=== PATIENT | female | born 1990 | race Hispanic/Latino ===

== ENCOUNTER 2017-03-25 17:40 | Inpatient (IN) | payer OTHER ==
[~2017-03-25] VITALS: Ht 167.6 cm; Wt 138.3 kg
[2017-03-25 17:37] VITALS: BP 174/72
[~2017-03-25 17:40] MED LIST: IBUPROFEN600 MG PO; KEFLEX500 MG PO; PNV PO; TYLENOL325 MG PO; [UNRECOGNIZED DRUG - OTHER] PO
[2017-03-25 18:23] LABS: URINE BILIRUBIN - DIPSTICK NEGATIVE (NEGATIVE); URINE BLOOD DIPSTICK NEGATIVE (NEGATIVE); URINE COLOR YELLOW; URINE GLUCOSE - DIPSTICK NEGATIVE (NEGATIVE); URINE KETONE NEGATIVE (NEGATIVE); URINE LEUK ESTERASE NEGATIVE (NEGATIVE); URINE NITRITE - DIPSTICK NEGATIVE (Negative); URINE PH 6.5 (4.5-8.0); URINE PROTEIN - DIPSTICK NEGATIVE (NEG-TRACE); URINE SPECIFIC GRAVITY 1.025; URINE UROBILINOGEN - DIPSTICK 0.2 E.U./dL (0.2)
[2017-03-25 18:27] LABS: COCAINE NEGATIVE (NEGATIVE); TETRAHYDROCANNABIONOL NEGATIVE (NEGATIVE); URINE CLARITY CLEAR
[2017-03-25 18:28] LABS: BARBITURATES NEGATIVE (NEGATIVE); METHADONE NEGATIVE (NEGATIVE); OXCYCODONE NEGATIVE (NEGATIVE); TRICYLIC ANTIDEPRESSANTS NEGATIVE (NEGATIVE)
[2017-03-25 18:45] VITALS: BP 156/73
[2017-03-25 19:00] VITALS: BP 162/77
[2017-03-25 21:00] VITALS: BP 160/67
[2017-03-25 21:32] LABS: HEMATOCRIT 31.9 % (37.0-47.0); HEMOGLOBIN 10.1 g/dl (12.0-16.0); IMMATURE GRANULOCYTES 0.6 % (0.0-1.0); MEAN CELL VOLUME 75.8 fL CALC (80.0-100.0); MEAN CORPUSCULAR HGB CONC 31.7 g/L CALC (32.0-36.0); NEUT# 7.81 thou/uL (2.00-7.15); RED BLOOD COUNT 4.21 mill/uL (4.20-5.60); RED CELL DISTRI WIDTH 17.1 % (11.5-15.5)
[2017-03-25 21:46] LABS: ALBUMIN 3.5 g/dL (3.2-5.0); ALKALINE PHOSPHATASE 143 u/l (38-126); ANION GAP 12 (6-22 (CALC)); BILIRUBIN, TOTAL 0.2 mg/dL (0.0-1.4); BUN 9 mg/dL (7-17); BUN/CREATININE RATIO 17 (12-20 (CALC)); CALCIUM 9.5 mg/dL (8.4-10.2); CARBON DIOXIDE 24 mmol/l (22-30); CHLORIDE 104 mmol/l (95-108); CREATININE 0.5 mg/dL (0.5-1.0); GFR > 60 ML/MIN (>=60 (CALC)); GFR FOR AFR.AMER. > 60 ML/MIN (>=60 (CALC)); GLUCOSE 73 mg/dL (65-105); SGOT/AST 28 u/l (14-36); SGPT/ALT 32 u/l (9-52); SODIUM 136 mmol/l (137-146); TOTAL PROTEIN 6.6 g/dL (6.3-8.2)
[2017-03-25 22:30] VITALS: BP 169/71
[2017-03-25 23:00] VITALS: BP 141/96
[2017-03-26] VITALS (22 sets, daily range): BP systolic 111–187; BP diastolic 54–86
[2017-03-27 06:07] LABS: HEMATOCRIT 25.5 % (37.0-47.0); IMMATURE GRANULOCYTES 0.6 % (0.0-1.0); MEAN CELL VOLUME 75.4 fL CALC (80.0-100.0); MEAN CORPUSCULAR HGB 23.7 pG CALC (26.0-32.0); MEAN CORPUSCULAR HGB CONC 31.4 g/L CALC (32.0-36.0); NEUT# 6.67 thou/uL (2.00-7.15); RED BLOOD COUNT 3.38 mill/uL (4.20-5.60)
[2017-03-27 07:06] VITALS: BP 132/63
[2017-03-27 19:30] VITALS: BP 153/66
[2017-03-28 08:14] VITALS: BP 125/66
[2017-03-28 08:17] VITALS: BP 125/66
[2017-03-28] MEDS ORDERED: IBUPROFEN600 MG PO (09:23)
== END 2017-03-28 12:45 | disposition home or self-care (01) | DRG 775 ==
LOC: OB 17:40 → OBOP 17:40 → OB 18:50
PROVIDERS: ADMIT Obstetrics & Gynecology; ATTEND Obstetrics & Gynecology
PROC: 10E0XZZ Delivery of Products of Conception, External Approach (ICD-10-PCS; principal; 2017-03-26)
PROC: 10907ZC Drainage of Amniotic Fluid, Therapeutic from Products of Conception, Via Natural or Artificial Opening (ICD-10-PCS; 2017-03-26)
DX: O99.214 Obesity complicating childbirth (principal); E66.9 Obesity, unspecified; Z68.42 Body mass index [BMI] 45.0-49.9, adult; Z37.0 Single live birth; Z3A.40 40 weeks gestation of pregnancy

== ENCOUNTER 2018-03-07 01:30 | Emergency (ER) | payer SELFPAY ==
[~2018-03-07] VITALS: Ht 167.6 cm; Wt 133.0 kg
[2018-03-07] MEDS ORDERED: ORPHENADRINE100 MG PO (04:04)
[2018-03-07] MEDS ORDERED: IBUPROFEN600 MG PO (04:04)
[2018-03-07 04:25] VITALS: BP 138/71
== END 2018-03-07 04:25 | disposition home or self-care (01) | DRG 552 ==
LOC: ED 01:30
DX: M51.36 Other intervertebral disc degeneration, lumbar region (principal); M48.061 Spinal stenosis, lumbar region without neurogenic claudication; M54.5 Low back pain; X50.1XXA Overexertion from prolonged static or awkward postures, initial encounter; Y92.009 Unspecified place in unspecified non-institutional (private) residence as the place of occurrence of the external cause

== ENCOUNTER 2019-10-03 01:05 | Emergency (ER) | payer MEDICAID ==
[~2019-10-03] VITALS: Ht 167.6 cm; Wt 114.0 kg
[~2019-10-03 01:05] MED LIST changes: +ORPHENADRINE100 MG PO
[2019-10-03] MEDS ORDERED: AMOXICILLIN500 MG PO (01:25)
[2019-10-03] MEDS ORDERED: PERCOCET 5/325M1 TAB PO (01:25)
[2019-10-03 01:30] VITALS: BP 156/93
== END 2019-10-03 01:45 | disposition home or self-care (01) | DRG 153 ==
LOC: ED 01:05
DX: H66.92 Otitis media, unspecified, left ear (principal)

== ENCOUNTER 2019-10-12 17:34 | Emergency (ER) | payer MEDICAID ==
[~2019-10-12] VITALS: Ht 167.6 cm; Wt 136.0 kg
[~2019-10-12 17:34] MED LIST changes: +AMOXICILLIN500 MG PO; +PERCOCET 5/325M1 TAB PO
[2019-10-12] MEDS ORDERED: FLOXIN OTIC0.3 % AS (19:04)
[2019-10-12] MEDS ORDERED: AMOX/K CLAV875 M1 PO (19:04)
[2019-10-12 19:15] VITALS: BP 156/83
== END 2019-10-12 19:15 | disposition home or self-care (01) ==
LOC: ED 17:34
DX: H66.92 Otitis media, unspecified, left ear (principal); H60.92 Unspecified otitis externa, left ear

== ENCOUNTER 2020-04-09 23:10 | Emergency (ER) | payer MEDICAID ==
[~2020-04-09] VITALS: Ht 167.6 cm; Wt 127.7 kg
[~2020-04-09 23:10] MED LIST changes: +AMOX/K CLAV875 M1 PO; +FLOXIN OTIC0.3 % AS
[2020-04-10 00:11] LABS: IMMATURE GRANULOCYTES 0.3 % (0.0-5.0); MEAN CORPUSCULAR HGB 27.2 pG CALC (26.0-32.0); MEAN CORPUSCULAR HGB CONC 31.7 g/dL CAL (32.0-36.0); NEUT# 2.9 thou/uL (2.00-7.15); RED BLOOD COUNT 4.01 mill/uL (4.20-5.60); RED CELL DISTRI WIDTH 13.5 % (11.5-15.5)
[2020-04-10 00:16] LABS: HEMATOCRIT 34.4 % (37.0-47.0); HEMOGLOBIN 10.9 g/dl (12.0-16.0); MEAN CELL VOLUME 85.8 fL CALC (80.0-100.0)
[2020-04-10 00:39] LABS: ALKALINE PHOSPHATASE 80 u/l (38-126); ANION GAP 11 (6-22 (CALC)); BILIRUBIN, TOTAL 0.2 mg/dL (0.0-1.4); BUN 15 mg/dL (7-17); BUN/CREATININE RATIO 25 (12-20 (CALC)); CARBON DIOXIDE 25 mmol/l (22-30); CHLORIDE 106 mmol/l (95-108); CREATININE 0.6 mg/dL (0.5-1.0); GFR > 60 ML/MIN (>=60 (CALC)); GFR FOR AFR.AMER. > 60 ML/MIN (>=60 (CALC)); POTASSIUM 3.7 mmol/l (3.5-5.1); SGOT/AST 42 u/l (14-36); SODIUM 139 mmol/l (137-146)
[2020-04-10] MEDS ORDERED: PROVERA10 MG PO (00:53)
[2020-04-10 01:12] VITALS: BP 150/76
== END 2020-04-10 01:23 | disposition home or self-care (01) ==
LOC: ED 23:10
PROVIDERS: Family Medicine
DX: N92.1 Excessive and frequent menstruation with irregular cycle (principal)

== ENCOUNTER 2024-05-14 16:19 | Emergency (ER) | payer SELFPAY ==
[~2024-05-14] VITALS: Ht 167.6 cm; Wt 145.1 kg
[~2024-05-14 16:19] MED LIST changes: +PROVERA10 MG PO
[2024-05-14 17:14] LABS: URINE BILIRUBIN - DIPSTICK Negative (NEGATIVE); URINE BLOOD DIPSTICK Large (NEGATIVE); URINE GLUCOSE - DIPSTICK >=1000 mg/dL (NEGATIVE); URINE KETONE 15 mg/dL (NEGATIVE); URINE PH 5.5 (4.5-8.0); URINE PROTEIN - DIPSTICK 100 mg/dL (NEG-TRACE); URINE SPECIFIC GRAVITY 1.015; URINE UROBILINOGEN - DIPSTICK 0.2 E.U./dL (0.2)
[2024-05-14 17:15] LABS: URINE COLOR Yellow; URINE LEUK ESTERASE Small (NEGATIVE); URINE NITRITE - DIPSTICK Positive (Negative)
[2024-05-14 17:18] LABS: URINE BACTERIA MANY hpf; URINE WBC >100 WBC/hpf (0-5)
[2024-05-14] MEDS ORDERED: ONDANSETRON HCl 4 MG/2 ML SDV IV ONE (17:30)
[2024-05-14] MEDS ORDERED: SODIUM CHLORIDE 0.9% 1,000 ML IV ONE (17:30)
[2024-05-14] MEDS ORDERED: KETOROLAC TROMETHAMINE 15 MG/ML SDV IV ONE (17:30)
[2024-05-14 17:39] VITALS: BP 157/94
[2024-05-14] MEDS ORDERED: ACETAMINOPHEN 500 MG TAB PO ONE (17:45)
[2024-05-14] MEDS ORDERED: cefTRIAXone SODIUM 2 GM in SODIUM CHLORIDE 0.9% 100 ML IV ONE (17:45)
[2024-05-14 17:51] LABS: BASO% 0.2 % (0-3); EOS% 0.5 % (0-8); IMMATURE GRANULOCYTES 0.2 % (0.0-5.0); LYMPH% 10.1 % (15-41); MEAN CELL VOLUME 87.5 fL CALC (80.0-100.0); MEAN CORPUSCULAR HGB 29.6 pG CALC (26.0-32.0); MEAN CORPUSCULAR HGB CONC 33.8 g/dL CAL (32.0-36.0); MONO% 5.7 % (2-13); NEUT# 11.08 thou/uL (2.00-7.15); NEUT% 83.3 % (42-76); RED BLOOD COUNT 5.04 mill/uL (4.20-5.60); RED CELL DISTRI WIDTH 12.4 % (11.5-15.5)
[2024-05-14 17:52] LABS: HEMATOCRIT 44.1 % (37.0-47.0); HEMOGLOBIN 14.9 g/dl (12.0-16.0)
[2024-05-14 18:03] LABS: ALBUMIN 4.2 g/dL (3.2-5.0); CREATININE 0.4 mg/dL (0.5-1.0); POTASSIUM 3.8 mmol/l (3.5-5.1); TOTAL PROTEIN 7.6 g/dL (6.3-8.2)
[2024-05-14 18:06] LABS: BILIRUBIN, TOTAL 0.5 mg/dL (0.02-1.3)
[2024-05-14] MEDS ORDERED: LEVOFLOXACIN750 MG PO (19:05)
[2024-05-14] MEDS ORDERED: ZOFRAN4 MG/TAB PO (19:09)
[2024-05-14 21:26] VITALS: BP 151/99
[2024-05-14 21:27] VITALS: BP 151/99
== END 2024-05-14 21:27 | disposition home or self-care (01) | DRG 690 ==
LOC: ED 16:19
PROVIDERS: Family Medicine; Nurse Practitioner
DX: N12 Tubulo-interstitial nephritis, not specified as acute or chronic (principal); B96.20 Unspecified Escherichia coli [E. coli] as the cause of diseases classified elsewhere
CPT/HCPCS: J0696; J1885; J2405